=== PATIENT | female | born 1970 ===

== ENCOUNTER 2023-06-18 12:00 | Inpatient (IN) | payer OTHER ==
[~2023-06-18] VITALS: Ht 175.3 cm; Wt 108.0 kg
[2023-06-18] MEDS ORDERED: SINGULAIR10 MG PO (13:56)
[2023-06-18] MEDS ORDERED: ZESTRIL10 M1 PO (13:56)
[2023-06-18] MEDS ORDERED: ALPRAZOLAM XR2 MG PO (13:57)
[2023-06-18] MEDS ORDERED: ECOTRIN81 MG PO (13:57)
[2023-06-18] MEDS ORDERED: SIMVAST PO (13:57)
[2023-06-18] MEDS ORDERED: HORIZANT300 MG PO (13:58)
[2023-06-18] MEDS ORDERED: RESTORIL HE (13:58)
[2023-06-18] MEDS ORDERED: CELEXA40 MG PO (13:59)
[2023-06-18] MEDS ORDERED: PROTONIX40 MG PO (13:59)
[2023-06-18] MEDS ORDERED: PROAIR RESPICL90 MCG IH (13:59)
[2023-06-18] MEDS ORDERED: MIRTAZAPINE15 M1 PO (14:00)
[2023-06-24] MEDS ORDERED: RESTORIL30 MG (08:33)
[2023-06-24] MEDS ORDERED: SIMVASTATIN20 MG (08:37)
[2023-06-24 13:24] LABS: HEMATOCRIT 38.1 % (36.0-45.00); HEMOGLOBIN 12.9 g/dL (12.0-15.00); MEAN CELL VOLUME 95.5 fL (80.00-100.00); MEAN CORPUSCULAR HEMOGLOBIN 32.4 pg (27.00-32.0); PLATELET COUNT 231 K/uL (150-450); RED BLOOD COUNT 3.99 M/uL (4.00-6.00)
[2023-06-24 14:07] LABS: ABG PH 7.348 (7.35-7.45); ABG PO2 92.2 mmHg (80-100); ABG pCO2 43.3 mmHg (35-45); BASE EXCESS -2.4 mmol/l; BICARBONATE 23.3 mmol/l (23-25); SaO2 96.5 %; Tco2 24.6 mmol/l; allen test SATISFACTORY; puncture site RADIAL LEFT
[2023-06-24 14:08] LABS: o2 21 %
[2023-06-25 06:50] LABS: HEMATOCRIT 36.7 % (36.0-45.00); HEMOGLOBIN 12.8 g/dL (12.0-15.00); MEAN CELL VOLUME 94.5 fL (80.00-100.00); MEAN CORPUSCULAR HEMOGLOBIN 32.8 pg (27.00-32.0); MEAN CORPUSCULAR HGB CONC 34.7 g/dl (32.0-36.0); PLATELET COUNT 220 K/uL (150-450); RED BLOOD COUNT 3.89 M/uL (4.00-6.00); RED CELL DISTRIBUTION WIDTH 13.7 % (11.5-14.5)
[2023-06-25 07:05] LABS: ALBUMIN 3.6 gm/dL (3.4-5.0); CALCIUM 8.8 mg/dL (8.5-10.1); CREATININE SERUM 0.74 mg/dL (0.55-1.02); GFR 81.78; PHOSPHOROUS 2.6 mg/dL (2.5-4.9); POTASSIUM 3.54 mEq/L (3.5-5.1)
[2023-06-26 06:42] LABS: HEMATOCRIT 35.5 % (36.0-45.00); HEMOGLOBIN 12.2 g/dL (12.0-15.00); MEAN CELL VOLUME 94.9 fL (80.00-100.00); MEAN CORPUSCULAR HEMOGLOBIN 32.5 pg (27.00-32.0); MEAN CORPUSCULAR HGB CONC 34.2 g/dl (32.0-36.0); PLATELET COUNT 214 K/uL (150-450); RED BLOOD COUNT 3.75 M/uL (4.00-6.00); RED CELL DISTRIBUTION WIDTH 13.7 % (11.5-14.5)
[2023-06-26 07:13] LABS: CALCIUM 8.8 mg/dL (8.5-10.1); CREATININE SERUM 0.64 mg/dL (0.55-1.02); GFR 96.7; MAGNESIUM 2.1 mg/dL (1.8-2.4); PHOSPHOROUS 2.5 mg/dL (2.5-4.9); POTASSIUM 3.73 mEq/L (3.5-5.1)
== END 2023-06-26 17:15 | disposition home or self-care (01) | DRG 330 ==
LOC: O/R 06-24 05:30 → SURG 06-24 11:29 → SURH 06-24 12:00 → SURG 06-26 17:15
PROVIDERS: Internal Medicine Geriatric Medicine; ADMIT Colon & Rectal Surgery; ATTEND Colon & Rectal Surgery
PROC: 4A12X4Z Monitoring of Cardiac Electrical Activity, External Approach (ICD-10-PCS; 2023-06-24)
PROC: 0DTN4ZZ Resection of Sigmoid Colon, Percutaneous Endoscopic Approach (ICD-10-PCS; 2023-06-24)
PROC: 0DBP4ZZ Excision of Rectum, Percutaneous Endoscopic Approach (ICD-10-PCS; 2023-06-24)
PROC: 0DJD8ZZ Inspection of Lower Intestinal Tract, Via Natural or Artificial Opening Endoscopic (ICD-10-PCS; 2023-06-24)
PROC: 3E0F7GC Introduction of Other Therapeutic Substance into Respiratory Tract, Via Natural or Artificial Opening (ICD-10-PCS; principal; 2023-06-25)
DX: K57.32 Diverticulitis of large intestine without perforation or abscess without bleeding (principal); K92.1 Melena

== ENCOUNTER 2023-07-29 09:48 | Emergency (ER) | payer OTHER ==
[~2023-07-29] VITALS: Ht 177.8 cm; Wt 103.9 kg
[~2023-07-29 09:48] MED LIST: ALPRAZOLAM XR2 MG PO; CELEXA40 MG PO; ECOTRIN81 MG PO; HORIZANT300 MG PO; MIRTAZAPINE15 M1 PO; PROAIR RESPICL90 MCG IH; PROTONIX40 MG PO; RESTORIL HE; RESTORIL30 MG; SIMVAST PO; SIMVASTATIN20 MG; SINGULAIR10 MG PO; ZESTRIL10 M1 PO
[2023-07-29 12:43] LABS: PH,URINE 6.5 (5.0-8.0); URINE APPEARANCE Clear; URINE BILIRRUBIN Negative (NEGATIVE); URINE BLOOD Negative; URINE COLOR Yellow; URINE GLUCOSE Negative (NEGATIVE); URINE LEUKOCYTE Negative; URINE NITRATE Negative; URINE PROTEIN Negative (NEGATIVE)
[2023-07-29 12:47] LABS: HEMATOCRIT 42.1 % (36.0-45.00); HEMOGLOBIN 14.3 g/dL (12.0-15.00); MEAN CELL VOLUME 95.1 fL (80.00-100.00); MEAN CORPUSCULAR HEMOGLOBIN 32.3 pg (27.00-32.0); MEAN CORPUSCULAR HGB CONC 33.9 g/dl (32.0-36.0); PLATELET COUNT 240 K/uL (150-450); RED BLOOD COUNT 4.43 M/uL (4.00-6.00); RED CELL DISTRIBUTION WIDTH 13.9 % (11.5-14.5); URINE BACTERIA 293.5 uL (0.0-1933); URINE EPITHELIAL CELLS 20.5 uL (0.0-38.8); URINE RBC 16.2 uL (0.0-20.8); URINE WBC 5.1 uL (0.0-23.2)
[2023-07-29 13:10] LABS: ALBUMIN 4.1 gm/dL (3.4-5.0); BILIRUBIN TOTAL 0.79 mg/dL (0.3-1.2); CREATININE SERUM 0.78 mg/dL (0.55-1.02); GFR 76.96; GLOBULINA 4.1 G/DL (2.4-3.5); POTASSIUM 3.97 mEq/L (3.5-5.1); TOTAL PROTEIN 8.2 gm/dL (6.4-8.2)
== END 2023-07-29 18:56 | disposition home or self-care (01) ==
LOC: ER 09:48
PROVIDERS: Emergency Medicine
DX: R10.32 Left lower quadrant pain (principal); K57.30 Diverticulosis of large intestine without perforation or abscess without bleeding; K59.00 Constipation, unspecified
CPT/HCPCS: 36415; 74177; 96365; 99284; J1200; J2930; Q9965